=== PATIENT | male | born 1970 | race Caucasian/White ===

== ENCOUNTER → 2021-11-16 | Day surgery (SDC) | payer OTHER ==
[~2021-11-16] VITALS: Ht 182.9 cm; Wt 95.3 kg
[~2021-11-16] MED LIST: AMITRIPTYLINE H10 MG PO; GABAPENTIN300 MG PO; OXYCODONE PO; OXYCONTIN 10MG10 MG PO
== END | disposition home or self-care (01) ==
LOC: FAS 08:42
DX: L72.0 Epidermal cyst (principal); F17.210 Nicotine dependence, cigarettes, uncomplicated
CPT/HCPCS: J2001